=== PATIENT | male | born 1955 | race Caucasian/White ===

== ENCOUNTER 2023-12-25 16:05 | Emergency (ER) | payer MEDICARE, OTHER ==
[~2023-12-25] VITALS: Ht 195.6 cm; Wt 131.8 kg
[~2023-12-25 16:05] MED LIST: ATOR-507 PO; RANO1000 PO
[2023-12-25 17:24] VITALS: BP 146/92; PULSE 104; RESP 16; TEMP 98.6; O2SAT 94
--- NOTE | 2023-12-25 17:30 | DVH ---
EXAM: XY LUMBAR SPINE 3 VIEW INDICATION: back pain COMPARISON: None TECHNIQUE: 3 views of the lumbar spine were obtained. Findings: Age indeterminate mild to moderate anterior wedge shaped compression fracture of L1. There is no evidence of spondylolysis or spondylolisthesis. Severe degenerative disc disease at L5/S1. No blastic or lytic lesions are appreciated. No radiopaque foreign bodies. No superficial soft tissue abnormalities. Impression: 1. Age indeterminate mild to moderate anterior wedge shaped compression fracture of L1. 2. Severe degenerative disc disease at L5/S1.
[2023-12-25] MEDS: KETOROLAC TROMETH 30 MG/ML 1ML VIAL IM ONE (17:36)
[2023-12-25] MEDS: methylPREDNISolone SOD SUCC 125 MG/2 ML VL IM ONE (17:37)
[2023-12-25] MEDS ORDERED: HYDR1TAB97 PO (18:36)
--- NOTE | 2023-12-25 18:37 | ED.PDOC ---
Back pain HPI HPI Comments 68-year-old male complaining of lower back pain on the right side. Pain is nonradiating. Patient states two weeks ago he was walking when he stepped wrong he felt a popping sensation in his back. States he has been having pain since then pain has been getting progressively worse. Patient has a hard time standing due to the pain. Patient denies any loss of bladder or bowel control. No saddle paresthesia. Does report a history of L4-L5 fracture in the past. Patient has been taking ibuprofen and Tylenol with little help. Started taking Flexeril which she was called in by his primary doctor and states over the last three days he feels as though the pain may be getting worse. Chief Complaint: Back Pain Time Seen by MD: 16:20 Primary Care Provider: ALEJANDRA Reviewed Notes: Nurses Notes Allergies: Coded Allergies: NO KNOWN ALLERGIES (Unverified , 12/25/23) Home Meds Reported Medications Atorvastatin Calcium (Lipitor) 40 Mg Tab, 1 TAB PO HS, TAB 07/27/15 Ranolazine (Ranexa) 1,000 Mg Tab, 500 MG PO BID, TAB 07/27/15 Information Source: Patient Mode of Arrival: EMS Past Medical History PAST MEDICAL HISTORY: Denies Constitutional: denies: chills, diaphoresis, fatigue, fever, malaise, sweats, weakness, others EENTM: denies: blurred vision, double vision, ear bleeding, ear discharge, ear drainage, ear pain, ear ringing, eye pain, eye redness, hearing loss, mouth pain, mouth swelling, nasal discharge, nose bleeding, nose congestion, nose pain, photophobia, tearing, throat pain, throat swelling, voice changes, others Respiratory: denies: cough, hemoptysis, orthopnea, SOB at rest, shortness of breath, SOB with excertion, stridor, wheezing, others Cardiovascular: denies: chest pain, dizzy spells, diaphoresis, Dyspnea on exertion, edema, irregular heart beat, left arm pain, lightheadedness, palpitations, PND, syncope, others Gastrointestinal: denies: abdomen distended, abdominal pain, blood streaked bowels, constipated, diarrhea, dysphagia, difficulty swallowing, hematemesis, melena, nausea, poor appetite, poor fluid intake, rectal bleeding, rectal pain, vomiting, others Genitourinary: denies: burning, dysuria, flank pain, frequency, hematuria, incontinence, penile discharge, penile sore, pain, testicle pain, testicle swelling, urgency, others Neurological: denies: dizziness, fainting, headache, left sided numbness, left sided weakness, numbness, paresthesia, pre-existing deficit, right sided numbness, right sided weakness, seizure, speech problems, tingling, tremors, weakness, others Musculoskeletal: reports: back pain; denies: gout, joint pain, joint swelling, muscle pain, muscle stiffness, neck pain, others Physical Exam General Appearance: No Apparent Distress, Normal HEENT: Normal ENT Inspection, Pharynx Normal, TMs Normal Neck: Full Range of Motion, Non-Tender, Normal, Normal Inspection Respiratory: Chest Non-Tender, Lungs Clear, No Accessory Muscle Use, No Respiratory Distress, Normal Breath Sounds Cardiovascular: No Edema, No JVD, No Murmur, No Gallop, Normal Peripheral Pulses, Regular Rate/Rhythm Breast Exam: Deferred Gastrointestinal: No Organomegaly, Non Tender, No Pulsatile Mass, Normal Bowel Sounds, Soft Genitalia: Deferred Pelvic: Deferred Rectal: Deferred Extremities: No calf tenderness, Normal capillary refill, Normal inspection, Normal range of motion, Non-tender, No pedal edema Musculoskeletal : Extremity Location: Back (Lumbar paraspinous muscles tender to palpation, limited range of motion lower back to the pain.) Apperance: Normal Neurologic: Alert, data processing manager II-XII nml as Tested, No Motor Deficits, Normal Affect, Normal Mood, No Sensory Deficits Cerebellar Function: Normal Reflexes: Normal Skin: Dry, Normal Color, Warm Lymphatic: No Adenopathy Was a procedure done? Was a procedure done?: No Back Pain Differential Dx Differential Diagnosis: Fracture, Musculoskeletal Pain, Pyelonephritis, Urinary Obstruction X-Ray, Labs, Meds, VS Vital Signs Date Time Temp Pulse Resp B/P (MAP) Pulse Ox O2 Delivery O2 Flow Rate FiO2 12/25/23 17:24 98.6 104 16 146/92 (110) 94 98.6 12/25/23 17:24 104 16 94 Room Air 12/25/23 16:08 98.5 114 18 175/97 (123) 98 Current Medications Medications (Trade) Dose Ordered Sig/Kimberly Route Start Time Stop Time Status Last Admin Methylprednisolone Sodium Succinate (Solu Medrol) 125 mg ONCE ONCE IM 12/25/23 16:45 12/25/23 16:46 DC 12/25/23 17:37 Ketorolac Tromethamine (Toradol Injection) 30 mg ONCE ONCE IM 12/25/23 16:45 12/25/23 16:46 DC 12/25/23 17:36 X-Ray, Labs, Meds, VS Comment Imaging: X-rays and CT scans were reviewed and interpreted by this provider, imaging shows no fractures and no pathological disease. Pending radiology review. Laboratory: Labs reviewed and interpreted by this provider. No significant abnormalities noted. Patient has prior medical visits reviewed. Med reconciliation performed Vital signs reviewed Time of 1ST Reevaluation: 18:37 Reevaluation 1ST: Improved Patient Education/Counseling: Diagnosis, Treatment, Need For Follow Up (Patient advised to follow-up in the emergency room in the next 24 to 48 hours if symptoms do not improve. Advised follow-up with PCP in the next 3 to 5 days. Patient verbalized understanding. ) Family Education/Counseling: Diagnosis Departure 1 Departure Time of Disposition: 18:36 Impression: Primary Impression: Lumbar sprain Qualified Codes: S33.5XXA - Sprain of ligaments of lumbar spine, initial encounter Disposition: HOME / SELF CARE / HOMELESS Condition: Fair e-Prescriptions Hydrocodone-Acetaminophen (Hydrocodone/Acetaminophen 5-325 mg) 1 Tab Tab 1 TAB PO TID PRN, #32 TAB Prov: CHOCO PETERSEN 12/25/23 Discharged With: Self Critical Care Note Critical Care Time?: No Stability Stability form required: No Heart Score Heart Score: Heart Score Response (Comments) Value History N/A 0 EKG N/A 0 Age N/A 0 Risk Factors N/A 0 Troponin N/A 0 Total 0 CHOCO PETERSEN Dec 25, 2023 18:37
== END 2023-12-25 19:02 | disposition home or self-care (01) ==
LOC: EDBD 16:05 → ER 16:26
DX: S33.5XXA Sprain of ligaments of lumbar spine, initial encounter (principal); X58.XXXA Exposure to other specified factors, initial encounter; Y93.89 Activity, other specified; Y92.89 Other specified places as the place of occurrence of the external cause; Y99.8 Other external cause status
CPT/HCPCS: 72100; 96372; 99284; J1885; J2919